=== PATIENT | male | born 1985 | race Two or more races ===

== ENCOUNTER 2018-12-01 14:10 | Emergency (ER) | payer SELFPAY ==
[~2018-12-01] VITALS: Ht 165.1 cm; Wt 86.2 kg
[2018-12-01 14:31] VITALS: Ht 165.1 cm; Wt 86.2 kg
[2018-12-01 17:08] VITALS: BP 131/83
== END 2018-12-01 17:08 | disposition home or self-care (01) ==
LOC: ED 14:10
DX: G44.209 Tension-type headache, unspecified, not intractable (principal)
CPT/HCPCS: 82962; J2765; J7030